=== PATIENT | female | born 1975 | race Caucasian/White ===

== ENCOUNTER 2019-08-20 18:58 | Outpatient (CLI) | payer BC ==
--- NOTE | 2019-08-20 23:02 | Ultrasound Report ---
Reason: MASS OF RIGHT KNEE JOINT Procedure Date: 08/20/2019 Accession Number: [id number] / [id number] Procedure: US - Ext Limited Non Vascular CPT Code: Final Report FULL RESULT: EXAM: RIGHT LOWER EXTREMITY ULTRASOUND - LIMITED EXAM DATE: 08/20/2019 07:30 PM. CLINICAL HISTORY: MASS OF RIGHT KNEE JOINT. COMPARISON: None. TECHNIQUE: Real-time scanning was performed with static images obtained. FINDINGS: Targeted sonographic evaluation of the posterior right knee was performed. There is any elongated hypoechoic fluid collection in the posteromedial knee measuring 6.2 x 1.1 x 3.1 cm. The surrounding soft tissues are normal. Comparison views of the left knee demonstrate a smaller hyperechoic collection measuring 1.8 x 0.7 cm. IMPRESSION: Elongated cystic lesion in the posteromedial right knee likely represents a hooker's cyst. There is a similar smaller cystic lesion in the left knee. RADIA
== END 2019-08-20 18:59 | disposition home or self-care (01) ==
LOC: DI 18:58
PROVIDERS: ATTEND Orthopaedic Surgery Sports Medicine
DX: M25.861 Other specified joint disorders, right knee (principal); M25.862 Other specified joint disorders, left knee
CPT/HCPCS: 76882

== ENCOUNTER 2020-03-16 11:26 | Outpatient (CLI) | payer OTHER | END 2020-03-16 11:27 | disposition home or self-care (01) | LOC: COV 11:26 | PROVIDERS: ATTEND Family Medicine | DX: R06.02 Shortness of breath (principal); M79.10 Myalgia, unspecified site; R53.83 Other fatigue; R19.7 Diarrhea, unspecified; R11.0 Nausea; J34.89 Other specified disorders of nose and nasal sinuses; Z20.828 Contact with and (suspected) exposure to other viral communicable diseases ==

== ENCOUNTER 2020-07-24 10:16 | Outpatient (CLI) | payer OTHER ==
[2020-07-24 11:06] VITALS: BP 148/98
--- NOTE | 2020-07-24 11:06 | SLEEP CARE CONSULTATION ---
Information from patient questionnaire entered by Adenike Doan. I have reviewed and concur with the information entered by Adenike Doan. This document represents the service I personally performed and the decisions made by me, Patricia Mart ARNP. History of Present Illness Service Date and Time: 07/24/2020 1016 Reason for Visit: New patient Chief Complaint: reports: Unrefreshed sleep, Snoring (on back), Observed pauses in breathing, Frequent awakenings at night Date of Onset: 4 plus years Usual bedtime: 9-10 pm Time it takes to fall asleep: 30 minutes typically Snores at night: Yes (while on back especially, dry mouth in the AM) Observed to quit breathing while asleep: Yes Sleeps alone due to snoring: Yes Number of times waking at night: 1-3 Reasons for waking at night: reports: Snoring, Bathroom, Other (dry mouth). denies: Choking, Gasping for air Toss, Turn, or Twitch while sleeping: Yes (sometimes, jeancarlos if has caffiene or elevated day stress) Recalls having dreams: Yes (highly active dreams) Usually gets out of bed at: 6-7 am Feels refreshed in the morning: No Morning headache: No Sleepy or fatigued during the day: Yes (sometimes) Ever fallen asleep while driving: No Takes day naps: Yes (sometimes; on weekends, 1-2 times a week) Dreams during day naps: Yes Prior sleep studies: No Additional HPI information: I had the pleasure of seeing BERENICE IRWIN today regarding the possibility of her having a sleep disorder. Her current complaints are snoring on back, unrefreshed sleep and awake during sleep. She has not trouble going to sleep but will not be able to sleep if sounds are close to her and wake her up. She dreams a lot. She listens to light rain sounds to help her sleep and has for years. She has RLS but has not needed medication for some time. If she feels symptoms in her legs she makes sure she hydrates and eats a banana every day, which usually helps. 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 Patient is Single and lives in [place]. Have you smoked in the past 12 months: No Years of smokin Quit date: 2004 Alcohol use: Yes Alcohol amount and frequency: 1-3 drinks 3 days a week, wine or beer Caffeine use: Yes Caffeine amount and frequency: 1 cup of coffee in the AM Family History Family history of sleep disordered breathing: Yes (father) Family Hx Sleep Apnea: Father: Sleep apnea - Untreated Allergies and Home Medications Drug allergies reviewed: Yes (latex) Home medication list reviewed: Yes Allergy and home medication list: Hydrochlorothiazide [id number] Levothyroxine Vyvanse dextroamphetamine Multi-vitamin Review of Systems Weight gain over past 5 years: 15 Cardiovascular: reports: high blood pressure Gastrointestinal: reports: heartburn (sometimes), diarrhea (sometimes) Urinary: reports: frequency Neurological: reports: headaches (only seasonal) Psychiatric: reports: Attention Deficit Hyperactivity Ear/Nose/Throat: reports: nasal congestion (seasonal) Endocrine: reports: thyroid disease (hypo) Musculoskeletal: reports: joint pain (from stress and workouts), muscle pain or cramping (from stress and workouts) Immunologic: reports: sneezing (seasonal) Physical Exam Blood Pressure: 148/98 Cuff size: regular Heart Rate: 97 O2 Saturation: 98 Height: 5 ft 9 in Weight: 184 lb Body Mass Index: 27.1 BMI Classification: Overweight Neck circumference: 14.75 (inches) Nostrils: patent to airflow Turbinates: normal Mouth and throat: narrow oropharynx Soft palate: long Hard palate: normal Uvula: normal Uvula visualization: 50% Mallampati Class II Tongue: normal in size Tonsils: 2+ Chin and jaw: normal size and position Neck: normal w/o lymphadenopathy or thyromegaly Heart: regular rate and rhythm Lungs: clear bilaterally Impression and Plan 1. Suspected Obstructive Sleep Apnea-Hypopnea Syndrome, as suggested by a history of loud and irregular snoring, observed cessation of breath while asleep, frequent awakening during the night, unrefreshed sleep, and cognitive impairment. Narrow oropharynx and obesity are common predisposing factors for obstructive sleep apnea-hypopnea syndrome. I recommend proceeding to poly somnography to confirm the diagnosis and to assess severity. If the patient has significant sleep disordered breathing, a manual CPAP titration study will also be performed to find the optimal treatment pressure. I informed the patient of what the sleep studies involve and after some discussion, obtained agreement to proceed. The pathophysiology of obstructive sleep apnea-hypopnea syndrome was discussed with the patient and health risks of cardiovascular and cerebrovascular disease if not treated. AAS brochure for obstructive sleep apnea-hypopnea syndrome given and reviewed. Risks of drowsy driving discussed in detail and patient advised to avoid long distance driving and to [employer] at the first sign of drowsiness. Patient agreed to plan. * Schedule polysomnography +- manual CPAP titration study and return in 1-2 weeks after the study to discuss result and initiate therapy. * Avoid long distance driving or driving when feeling sleepy. * Avoid alcohol, sedative and muscle relaxant around bedtime. * Attempt to lose weight. * Review instructions provided by trained office staff on how to prepare for the sleep study. * Return for follow-up after sleep study completed. Counseling Topics: Weight loss health impact Visit Type: In Office Time Spent with Patient (minutes): 33 Provider Statement: I spent 100% of the Face to Face Visit with the patient with greater than 50% spent counseling the patient and coordination of care.
== END 2020-07-24 10:17 | disposition home or self-care (01) ==
LOC: SC 10:16
PROVIDERS: ATTEND Nurse Practitioner Family
DX: R06.81 Apnea, not elsewhere classified (principal); R06.83 Snoring; G47.8 Other sleep disorders; R41.89 Other symptoms and signs involving cognitive functions and awareness; E66.3 Overweight; Z68.27 Body mass index [BMI] 27.0-27.9, adult
CPT/HCPCS: 99203; 99212

== ENCOUNTER 2020-08-12 09:05 | Outpatient (CLI) | payer OTHER | END 2020-08-12 09:06 | disposition home or self-care (01) | LOC: SC 09:05 | PROVIDERS: ATTEND Nurse Practitioner Family | DX: G47.8 Other sleep disorders (principal); R06.81 Apnea, not elsewhere classified; R06.83 Snoring | CPT/HCPCS: 95806 ==

== ENCOUNTER 2020-08-19 08:04 | Outpatient (CLI) | payer OTHER ==
--- NOTE | 2020-08-19 08:31 | SLEEP CARE CONSULTATION ---
Information from patient questionnaire entered by Adenike Doan. I have reviewed and concur with the information entered by Adenike Doan. This document represents the service I personally performed and the decisions made by , Patricia Mart ARNP. History of Present Illness Service Date and Time: 08/19/2020 08 Initial [place] Sleepiness Scale score: 6 (in 2020) Current [place] Sleepiness Scale score: 8 Additional HPI information: BERENICE IRWIN returns for follow up and results of the recently performed home sleep study. The patient was informed of the following findings: no significant sleep disordered breathing with an average AHI of 3.8 and magalys oxygen saturation of 87%. Her supine AHI was elevated at 5.4. I explained the pathophysiology behind obstructive sleep apnea. Patient does not have sleep apnea and was advised how weight gain could increase the risk of developing sleep apnea in the future. I strongly encouraged the patient to lose weight. Patient does not have significant sleep disordered breathing but has elevated AHI in supine position so advised positional therapy. Methods to achieve positional management therapy were discussed; such as, positioning with pillows, wearing a T-shirt with tennis balls sewn into the back, Rematee shirt, Zzomba belt and Slumberbump belt. Patient has moderate snoring. Snoring can be reduced by weight loss. Weight loss is best achieved with diet consult. Patient instructed to contact PCP for referral. Snoring can also be treated with an oral appliance from a dentist. Advised to check insurance coverage. In addition, an ENT evaluation can be do to see if other treatment is indicated. Patient counseled not drink alcohol less than 4 hours before bedtime as it can increase snoring and apnea. Patient was cautioned about risks of drowsy driving until sleepiness symptoms resolve. Sleep Study - Results Type of Sleep Study: Home sleep study Prior sleep studies: No Polysomnography/Home Sleep Study results: Physician Impression: The quality of the study is good. The length of the study is adequate (> 240 minutes). Please also see the tabulated and graphic data. 1. No significant sleep-disordered breathing, with an AHI of 3.8/hr and magalys SaO2 of 87%. During the study, the patient had 19 apneas (19 obstructive, 0 central, 0 mixed) and 18 hypopneas. The longest episode lasted 58.5 seconds. The few respiratory events occurred almost exclusively during supine sleep (supine AHI was 5.4 and non-supine, 2.01). 2. Hypoxemia (ICD-10 R09.02), minimal, with the lowest oxygen saturation of 87 % and 2.1 minutes with SaO2 under 90%. Baseline oxygen saturation was normal (Average oxygen saturation was 94%). Allergies and Home Medications Home medication list reviewed: Yes (doxyalimine (Unisom) 1/2 tab as needed) Review of Systems Review of systems same as previous: Yes (no changes) Physical Exam Heart Rate: 86 O2 Saturation: 98 Height: 5 ft 9 in Weight: 184 lb Body Mass Index: 27.1 BMI Classification: Overweight Impression and Plan Snoring but no significant sleep disordered breathing. Patient advised that often weight loss will reduce snoring as well as apnea risk. An oral appliance can also be used for snoring. This would require a dental consultation. Patient cautioned not to use other online appliances as can cause bite issues. A list of accredited dentists in [facility] and one local dentist who makes oral appliances is available as needed in this office. Patient is advised to check if insurance will cover. An ENT consult can also be helpful to determine if any other treatment is an option. * Attempt to lose weight * Avoid alcohol consumption near bedtime * The patient is cautioned about driving until sleepiness is completely resolved. * Return as needed Counseling Topics: Weight loss health impact Visit Type: In Office Time Spent with Patient (minutes): 21 Provider Statement: I spent 100% of the Face to Face Visit with the patient with greater than 50% spent counseling the patient and coordination of care.
== END 2020-08-19 08:05 | disposition home or self-care (01) ==
LOC: SC 08:04
PROVIDERS: ATTEND Nurse Practitioner Family
DX: R06.83 Snoring (principal); E66.3 Overweight; Z68.27 Body mass index [BMI] 27.0-27.9, adult
CPT/HCPCS: 99212; 99213